=== PATIENT | male | born 1960 | race African-American/Black ===

== ENCOUNTER 2020-08-10 15:24 | Outpatient (REF) | payer MEDICAID, SELFPAY ==
[2020-08-10 16:39] LABS: MANUAL DIFF FLAG NO
[2020-08-10 16:41] LABS: Basophils Percent Auto 0.5 % (0-2); Eosinophils Absolute Auto 0.4 X10*3/uL (0.0-0.4); Eosinophils Percent Auto 5.4 % (0-4); Hematocrit 45.6 % (42-52); Hemoglobin 15.1 g/dl (14.0-18.0); Imm Gran Abs Auto 0.01 X10*3/uL (0.00-0.03); Imm Gran Pct Auto 0.1 % (0.0-0.4); Lymphocytes Absolute Auto 3.7 X10*3/uL (1.2-4.9); Lymphocytes Percent Auto 47.7 % (20-40); Mean Corpuscular HGB Conc 33.1 g/dl (31.0-36.0); Mean Corpuscular Hemoglobin 29.4 pg (27.0-33.0); Mean Corpuscular Volume 88.9 fL (80-98); Mean Platelet Volume 10.9 fL (9.4-12.4); Monocytes Absolute Auto 0.7 X10*3/uL (0.1-1.2); Monocytes Percent Auto 9.1 % (2-11); Neutrophils Absolute Auto 2.9 X10*3/uL (2.0-8.3); Neutrophils Percent Auto 37.2 % (45-73); Platelet Count 284 X10*3/uL (160-400); Red Blood Count 5.13 X10*6/uL (4.60-5.80); Red Cell Distribution Width 12.5 % (11.0-16.0); White Blood Count 7.7 X10*3/uL (4.8-10.8)
[2020-08-10 16:45] LABS: Prothrombin Time 12.2 SEC (10.8-13.0)
[2020-08-10 16:53] LABS: Estimated Average Glucose 103 mg/dL; Hemoglobin A1c % 5.2 %
[2020-08-10 17:08] LABS: Alanine Aminotransferase 46 U/L (0-40); Albumin Level 4.3 g/dL (3.5-5.0); Alkaline Phosphatase 71 U/L (39-117); Anion Gap 15 (12-20); Aspartate Amino Transferase 38 U/L (5-37); Bilirubin Direct 0.3 mg/dL (0.0-0.5); Bilirubin Total 0.4 mg/dL (0.0-1.0); Blood Urea Nitrogen 31 mg/dL (9-16); Calcium 9.5 mg/dL (8.4-10.2); Carbon Dioxide 22 mmol/L (22-29); Chloride 104 mmol/L (96-108); Cholesterol 164 mg/dL; Estimated Glomerular Filt Rate 54; Glucose Random 92 mg/dL (60-115); HDL Cholesterol 64 mg/dL; LDL Cholesterol Calculated 76 mg/dl; Sodium 137 mmol/L (135-145); Total Protein 8.3 g/dL (6.5-8.0); Triglycerides 120 mg/dL
== END 2020-08-10 15:25 | disposition home or self-care (01) ==
LOC: HO.LAB 15:24
PROVIDERS: PCP General Practice; Visit Provider General Practice
DX: B17.10 Acute hepatitis C without hepatic coma (principal); I10 Essential (primary) hypertension
CPT/HCPCS: 36415; 80048; 80061; 80076; 83036; 85025; 85610

== ENCOUNTER 2020-09-08 14:53 | Outpatient (REF) | payer MEDICAID, SELFPAY ==
--- NOTE | 2020-09-08 | US_ITS ---
EXAMINATION: US COMPLETE ABDOMEN WITH LIVER ELASTOGRAPHY CLINICAL INFORMATION: Chronic lateral hepatitis C. COMPARISON: None TECHNIQUE: Real-time imaging of the abdominal viscera. Noninvasive ultrasound liver fibrosis assessment is performed using Liliam ElastPQ point quantification shear wave elastography (pSWE) with a 5 MHz transducer. Multiple elastography samples are obtained. FINDINGS: PANCREAS: The visualized pancreatic head and body are normal in appearance. The remainder of the pancreas is obscured from visualization by the overlying bowel gas. ABDOMINAL AORTA: The proximal, middle, and distal aortic segments are normal in caliber. INFERIOR VENA CAVA: Visualized portions are normal. LIVER: The liver demonstrates normal size, contour and echogenicity. No focal lesion or intrahepatic biliary duct dilatation. The right lobe measures 16.7 cm in length. The left lobe measures 11.6 cm in length. There is hepatopedal flow seen in the portal vein. Incidental finding of periportal echogenicity likely fibrosis. Shear wave elastography provides a median stiffness of 1.37 m/s (reference: normal median stiffness is 0.81 - 1.22 m/s). The IQR/median stiffness to assess sampling precision is 0.3 (reference: optimal IQR/median stiffness is under 0.3). 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 Gallbladder wall thickness is 0.4 cm. No tenderness in the right upper quadrant. COMMON BILE DUCT: Normal in caliber measuring 0.7 cm in diameter. RIGHT KIDNEY: Normal. No hydronephrosis. No renal calculi or focal parenchymal lesions. The kidney measures 11.4 cm in maximum dimension. LEFT KIDNEY: Normal. No hydronephrosis. No renal calculi or focal parenchymal lesions. The kidney measures 11.0 cm in maximum dimension. SPLEEN: Normal. The spleen measures 9.1 cm in maximum dimension. FREE FLUID: None. US/US abdomen comp w elastography IMPRESSION: 1. 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 2. Periportal fibrosis. No focal liver lesion or intrahepatic ductal dilatation. 3. Rest of the abdominal ultrasound is unremarkable. 4. Elastography: [id number] fibrosis.
== END 2020-09-08 14:54 | disposition home or self-care (01) ==
LOC: HO.US 14:53
PROVIDERS: PCP General Practice; Visit Provider Family Medicine
DX: B18.2 Chronic viral hepatitis C (principal); K74.00 Hepatic fibrosis, unspecified
CPT/HCPCS: 76705; 76981

== ENCOUNTER 2020-09-23 12:54 | Emergency (ER) | payer MEDICAID, SELFPAY | END 2020-09-23 18:57 | disposition left against medical advice (07) | PROVIDERS: Emergency Provider Emergency Medicine | DX: R10.13 Epigastric pain (principal) ==

== ENCOUNTER 2020-11-03 14:53 | Outpatient (RCR) | payer MEDICAID, SELFPAY ==
[2020-11-03 15:03] VITALS: BP 112/69; PULSE 85
== END 2020-11-24 09:29 | disposition other institution (70) ==
LOC: HO.PT 14:53
PROVIDERS: PCP General Practice; Visit Provider General Practice
DX: I63.9 Cerebral infarction, unspecified (principal)
CPT/HCPCS: 97110; 97162; 97163

== ENCOUNTER 2020-11-08 14:12 | Outpatient (REF) | payer MEDICAID, SELFPAY ==
[2020-11-08 16:34] LABS: Blood Urea Nitrogen 24 mg/dL (9-16); Estimated Glomerular Filt Rate 56
== END 2020-11-08 14:13 | disposition home or self-care (01) ==
LOC: HO.LAB 14:12
PROVIDERS: PCP General Practice; Visit Provider Surgery
DX: K82.8 Other specified diseases of gallbladder (principal); K80.20 Calculus of gallbladder without cholecystitis without obstruction; B19.20 Unspecified viral hepatitis C without hepatic coma; I10 Essential (primary) hypertension; E07.9 Disorder of thyroid, unspecified; Z79.82 Long term (current) use of aspirin; Z79.899 Other long term (current) drug therapy; Z87.891 Personal history of nicotine dependence
CPT/HCPCS: 36415; 82565; 84520; 99202

== ENCOUNTER 2020-11-17 13:53 | Outpatient (REF) | payer MEDICAID, SELFPAY ==
--- NOTE | ~2020-11-17 | CT_ITS ---
EXAMINATION: CT ABDOMEN AND PELVIS WITH CONTRAST CLINICAL INFORMATION: Other specified diseases of gallbladder. COMPARISON: None TECHNIQUE: Multidetector volumetric images were obtained from the superior aspect of the liver through the pubic symphysis following administration 85 mL of Omnipaque 350 intravenous contrast. Sagittal and coronal reformatted images were obtained on the technologist's workstation. Oral Contrast: No. This CT examination was performed using dose optimization techniques as appropriate, variously including the following: *Automated exposure control. *Adjustment of mA and/or kV according to patient size (this includes techniques or standardized protocols for targeted exams where dose is matched to indication/reason for exam; i.e. extremities or head). *Use of iterative reconstruction technique. DLP: 804 mGy-cm FINDINGS: LUNG BASES: The visualized lung bases are unremarkable. LIVER, GALLBLADDER, AND BILIARY TREE: The liver is normal in size, shape, and attenuation. No focal hepatic lesion or biliary ductal dilatation is present. The gallbladder is unremarkable with no evidence of radiopaque gallstones, gallbladder wall thickening, or obvious pericholecystic inflammatory changes. PANCREAS: Unremarkable. SPLEEN: Unremarkable. ADRENAL GLANDS: Unremarkable. KIDNEYS AND URETERS: The kidneys are normal in size, shape, and attenuation. No hydronephrosis, hydroureter, or calculi seen. No perinephric stranding. There is a 1.7 cm cyst upper pole left kidney. BLADDER: Unremarkable. GASTROINTESTINAL TRACT: There is moderate scattered stool seen throughout the colon without significant distention. Few scattered diverticuli seen. A floppy cecum is visualized in the right mid abdomen. Appendix is normal caliber. The small bowel loops are normal caliber. The stomach is non-distended. ABDOMINAL WALL: No significant hernia is appreciated. LYMPH NODES: Normal. VASCULAR: Unremarkable. PELVIC VISCERA: There is no free air or free fluid. OSSEOUS STRUCTURES: There is no lytic or sclerotic process. There is bilateral anterior fusion of SI joints. Minimal superior endplate spondylosis seen in the lower lumbar spine. CT/CT abdomen pelvis w con IMPRESSION: 1. Moderate constipation. Mild colonic diverticulosis. 2. Small left renal upper pole cyst. No radiopaque urolith or hydronephrosis.
[2020-11-17] MEDS: iohexoL 350 MG/ML 100 ML INFUS..BTL IV (14:48)
== END 2020-11-17 13:54 | disposition home or self-care (01) ==
LOC: HO.CT 13:53
PROVIDERS: PCP General Practice; Visit Provider Surgery
DX: K82.8 Other specified diseases of gallbladder (principal)
CPT/HCPCS: 74177; Q9967

== ENCOUNTER 2020-11-30 15:45 | Outpatient (REF) | payer MEDICAID, SELFPAY ==
[2020-11-30 16:37] LABS: MANUAL DIFF FLAG NO
[2020-11-30 16:42] LABS: Basophils Percent Auto 0.5 % (0-2); Eosinophils Absolute Auto 0.4 X10*3/uL (0.0-0.4); Eosinophils Percent Auto 4.8 % (0-4); Hematocrit 44.6 % (42-52); Imm Gran Abs Auto 0.02 X10*3/uL (0.00-0.03); Imm Gran Pct Auto 0.3 % (0.0-0.4); Lymphocytes Percent Auto 37.9 % (20-40); Mean Corpuscular HGB Conc 33.6 g/dl (31.0-36.0); Mean Corpuscular Hemoglobin 29.4 pg (27.0-33.0); Mean Corpuscular Volume 87.5 fL (80-98); Mean Platelet Volume 10.2 fL (9.4-12.4); Monocytes Absolute Auto 0.9 X10*3/uL (0.1-1.2); Monocytes Percent Auto 11.4 % (2-11); Neutrophils Absolute Auto 3.6 X10*3/uL (2.0-8.3); Neutrophils Percent Auto 45.1 % (45-73); Platelet Count 327 X10*3/uL (160-400); Red Cell Distribution Width 12.1 % (11.0-16.0)
[2020-11-30 17:08] LABS: Alanine Aminotransferase 30 U/L (0-40); Albumin Level 4.5 g/dL (3.5-5.0); Alkaline Phosphatase 84 U/L (39-117); Anion Gap 15 (12-20); Aspartate Amino Transferase 28 U/L (5-37); Bilirubin Total 0.7 mg/dL (0.0-1.0); Blood Urea Nitrogen 20 mg/dL (9-16); Calcium 9.9 mg/dL (8.4-10.2); Carbon Dioxide 23 mmol/L (22-29); Chloride 107 mmol/L (96-108); Estimated Glomerular Filt Rate > 60; Glucose Random 92 mg/dL (60-115); Potassium 4.1 mmol/L (3.3-5.1); Sodium 141 mmol/L (135-145); Total Protein 8.4 g/dL (6.5-8.0)
[2020-12-03 18:22] LABS: HCV Log PCR 1.63 Log IU/mL (NOT DETECTED); HepC Viral Load 43 IU/mL (NOT DETECTED)
== END 2020-11-30 15:46 | disposition home or self-care (01) ==
LOC: HO.LAB 15:45
PROVIDERS: PCP General Practice; Visit Provider Family Medicine
DX: B18.2 Chronic viral hepatitis C (principal)
CPT/HCPCS: 36415; 80053; 85025; 87522

== ENCOUNTER 2020-12-24 07:15 | Day surgery (SDC) | payer MEDICAID, SELFPAY ==
[2020-11-18 13:56] VITALS: BMI 34.7
--- NOTE | 2020-12-13 09:21 | P.CONAN_ITS ---
Documented by User: Radha Floydney 12/17/20 15:10 HPI - Anesthesia Eval Consult details Narrative: 60yo M for Cholecystectomy Laparoscopic, Poss Open PCP cleared h/o hemorrhagic CVA - left side weakness current Hep C treatment resched to 12/24/20 per pt preference PMFSH Active Problems Active Problems: All Active Problems (Updated 11/18/20 @ 14:46 by Rose Vega) Gallstones (Acute) Thyroid disease (Acute) Hepatitis C (Acute) CVA (cerebral vascular accident) (Acute) Hypertension (Acute) Porcelain gallbladder (Acute) Past Medical History Medical History CVA (cerebral vascular accident) Gallstones Hemiparesis Hepatitis C History of atrial fibrillation Hypercholesteremia Hypertension Porcelain gallbladder Shoulder pain, right Thyroid disease Walker as ambulation aid Family History Family History Brother History of bone cancer Mother History of bladder cancer Surgical History Surgical History Hx of arthroscopic knee surgery Hx of colonoscopy Hx of umbilical hernia repair Social History Social History Alcohol intake: former Smoking Status: Former smoker Smoking Quit Date: 2018 Use of substances other than those prescribed or required for medical reasons: No Advance Directives: No Advance Directives Information Provided: No Advance Directives on File: No Meds Allergies Allergy/AdvReac Type Severity Reaction Status Date / Time No Known Allergies Allergy Verified 11/18/20 13:56 Home Medications Medication Instructions Recorded Confirmed Last Taken Type aspirin 81 mg tablet,delayed 81 mg PO DAILY 11/08/20 11/18/20 Unknown History release atorvastatin 10 mg tablet 10 mg PO DAILY 11/08/20 11/18/20 Unknown History hydrochlorothiazide 25 mg tablet 25 mg PO DAILY 11/08/20 11/18/20 Unknown History labetalol 300 mg tablet 300 mg PO BID 11/08/20 11/18/20 Unknown History nifedipine 60 mg tablet,extended 60 mg PO DAILY 11/08/20 11/18/20 Unknown History release sofosbuvir 400 mg-velpatasvir 100 1 tab PO DAILY 11/08/20 12/24/20 12/24/20 06:00 History mg tablet lisinopril 1 tab PO DAILY 11/18/20 11/18/20 Unknown History Exam Exam Date and Time: December 13, 2020920 Height,Weight and Vital Signs: Height 6 ft 2 in Weight 122.47 kg Pertinent Lab Results Pertinent Lab Results: Laboratory Tests 11/30/20 11/30/20 16:06 16:06 WBC 8.0 Hgb 15.0 Hct 44.6 Plt Count 327 Sodium 141 Potassium 4.1 Chloride 107 Carbon Dioxide 23 BUN 20 H Creatinine 1.19 Narrative Narrative: EKG 11/2020 SR @ 79, IA conduction delay, LAD Assessment and Plan Assessment Anesthesia Assessment: Chart Reviewed Documented by User: Aruna Mulligan 12/24/20 09:44 [facility] Past Medical History Medical History CVA (cerebral vascular accident) Gallstones Hemiparesis Hepatitis C History of atrial fibrillation Hypercholesteremia Hypertension Porcelain gallbladder Shoulder pain, right Thyroid disease Walker as ambulation aid Family History Family History Brother History of bone cancer Mother History of bladder cancer Surgical History Surgical History Hx of arthroscopic knee surgery Hx of colonoscopy Hx of umbilical hernia repair Social History Social History Alcohol intake: former Smoking Status: Former smoker Smoking Quit Date: 2018 Use of substances other than those prescribed or required for medical reasons: No Advance Directives: No Advance Directives Information Provided: No Advance Directives on File: No Meds Allergies Allergy/AdvReac Type Severity Reaction Status Date / Time No Known Allergies Allergy Verified 11/18/20 13:56 Home Medications Medication Instructions Recorded Confirmed Last Taken Type aspirin 81 mg tablet,delayed 81 mg PO DAILY 11/08/20 11/18/20 Unknown History release atorvastatin 10 mg tablet 10 mg PO DAILY 11/08/20 11/18/20 Unknown History hydrochlorothiazide 25 mg tablet 25 mg PO DAILY 11/08/20 11/18/20 Unknown History labetalol 300 mg tablet 300 mg PO BID 11/08/20 11/18/20 Unknown History nifedipine 60 mg tablet,extended 60 mg PO DAILY 11/08/20 11/18/20 Unknown History release sofosbuvir 400 mg-velpatasvir 100 1 tab PO DAILY 11/08/20 12/24/20 12/24/20 06:00 History mg tablet lisinopril 1 tab PO DAILY 11/18/20 11/18/20 Unknown History Exam Airway Mallampati Class: III TM Dist: >3cm Neck ROM: Full Loose/Missing/Broken Teeth: No Heart: RRR Lungs: CTA Assessment and Plan Assessment Anesthesia Assessment: Anesthesia Plan Discussed and Chart Reviewed Final Anesthetic Review NPO: Yes ASA Class: III Final Preanesthetic Review: Consent Obtained/Reviewed and Anes Risks/Benef Reviewed Patient Risk: Intermediate Procedure Risk: Intermediate Anesthetic Plan Anesthetic Plan: GA Disposition: Standard PACU
[2020-12-24 07:57] VITALS: BP 117/72; PULSE 70; RESP 16; TEMP 36.7; O2SAT 98
[2020-12-24] MEDS: Lactated Ringers 1,000 ML 100 ML IVCONT (08:12)
--- NOTE | 2020-12-24 09:04 | P.HPSUR_ITS ---
Pre-Procedural Eval Section B Chief Complaint: Porcelain gallbladder, Gallstones Details of Present Illness: Has had gallstones on ultrasound with periodic right upper quadrant pain Relevant Family History (Specify if Yes): No Relevant Social History: None Present Medications: see Short Stay Collaborative assessment Medical History: Significant History (CVA, hypertension, hepatitis-C, thyroid disease) Allergies: Allergies Allergy/AdvReac Type Severity Reaction Status Date / Time No Known Allergies Allergy Verified 11/18/20 13:56 Review of Systems Sugical H&P ROS: Negative: Constitution, Cardiovascular, Respiratory, Psychiatric, Hem-Onc, Allergic/Immunologic, Gastrointestinal, Genitourinary, Musculoskeletal, Integumentary, Endocrine and Eyes/Ears/Nose/Throat and Yes, Specify: Neurological (Left-sided weakness, not new) Exam Surgical H&P Exam: Normal: HEENT, Normal: Heart, Normal: Lungs, Normal: Extremi ties, Normal: Abdomen, Normal: Skin (Left-sided) and Normal: Neurological Plan Diagnosis/Plan: Unchanged I have reviewed the history and physical and performed a pertinent physical examination on my patient. No changes have occurred unless specified.
--- NOTE | 2020-12-24 10:52 | P.OP_ITS ---
Operative Note Operative Note Date of Service: 12/24/20 Narrative: Preop diagnosis: Symptomatic gallstones, question of porcelain gallbladder Postop diagnosis: symptomatic gallstones, question of porcelain gallbladder Procedure: Laparoscopic cholecystectomy Surgeon: Ean Herbert MD using The patient is a 60-year-old male with history of CVA with left-sided weakness with episodes of right upper quadrant pain. Imaging study showing gallstones and question of porcelain gallbladder. Because of his symptoms, explained to him benefit of laparoscopic cholecystectomy. I discussed with him the technique of the procedure. I reviewed with him the risks including but not limited to bleeding, infections, bowel injury, injury to the biliary tree, the liver, as well as benefits and alternatives had he had given consent He was brought to the operating room and placed supine on the table under general anesthesia via endotracheal tube. The abdomen was prepped and draped in the usual sterile fashion. A surgical time-out was done. The patient received Cefotan 2 g IV preoperatively. A short supraumbilical incision was made on the skin using a blade 15 and this was carried down to the full-thickness of the skin and subcutaneous fat down to the fascia. The fascia was incised. The peritoneum was entered and through this incision, a [place] port was introduced. Pneumoperitoneum was introduced to a pressure of 15 mm mercury. From here on the rest of the procedure was done under vision with the laparoscopic. With laparoscopic visualization, I proceeded to insert another 5/12 below the subcostal margin in the epigastric area through a small stab incision. 5 mm ports were introduced through small incisions below the subcostal margin along the anterior axillary line and the midclavicular line. Graspers were placed through these working ports. The patient was placed in head-up and [id number] position. The gallbladder was seen. This was supple and not inflamed. I was able to apply a grasper at the fundus of the gallbladder and this was used to retract t he gallbladder cephalad. Another grasper was applied towards the pouch of the gallbladder and this was used to retract the gallbladder laterally. At this point therefore the gallbladder was being retracted in a cephalad and lateral fashion to put the area of the cystic duct on stretch. There was note of adhesions adjacent to the area towards the abdominal wall in the epigastric area so I had to carefully lyse this using Endo scissors until these were released completely and I was able to have good visualization of the entire gallbladder. I proceeded to gently dissect the the gallbladder using the [place] dissector. With this dissection was able to therefore completely define the cystic duct its confluence of the neck of the gallbladder. I was also able to achieve a critical view of the hepatocystic triangle. The cystic artery was clearly seen and there were no other structures that were in this area. I applied clips on the cystic duct with 2 clips being applied distally the cy stic duct was transected between clips with Endo scissors. I applied clips on the cystic artery as well and this was transected between clips also with Endo scissors. I divided across the areolar tissue of the hilum using the electrocautery spatula. I reached the interface of the gallbladder wall and the liver bed. I made an incision the peritoneum the gallbladder using the electrocautery spat malcolm. I then proceeded to dissect along this well-defined plane of the dissection between the gallbladder wall and the liver bed using a combination of blunt dissection and electrocautery to separate the entire gallbladder from the liver bed. With this dissection method, I proceeded to continue to separate the gallbladder all the way to fundus. The gallbladder was retrieved through an endobag through the umbilical incision. I reinsufflated. There was a little bit of bile leak from a tear in the gallbladder wall from the retractor her air so we had to copiously irrigate up to 2 L of fluid. I suctioned out the irrigant fluid and this was noted to be clear. I observed the subhepatic space. There were no signs of any bleeding or any bile leak. I observed all 4 quadrants of the peritoneum and there was no evidence any bowel injury or any other pathology I confirmed for hemostasis. Once hemostasis was ensured, I proceeded to desufflate through the port sites I then removed the ports with laparoscopic visualization. The umbilical port was removed last. The fascia of the umbilical incision is closed with a [id number] Dexon 0. Skin closure was achieved achieved on all incisions using Dexon 4-0 subcuticular sutures. Steri-Strips and dressings were applied. The procedure was then completed. No immediate complications. Initial and final counts of sponges and instruments were correct. Estimated blood loss about 30 cc. The patient was extubated without difficulty and transferred to the recovery room with stable vital signs.
[2020-12-24 10:55] VITALS: BP 110/72; PULSE 72; RESP 14; TEMP 37.3; O2SAT 100
[2020-12-24 11:00] VITALS: BP 117/80; PULSE 72; RESP 16; O2SAT 96
--- NOTE | 2020-12-24 11:01 | PM.OP ---
Brief Operative Note Date of Service: 12/24/20 Pre-op diagnosis: Symptomatic gallstones, question of porcelain gallbladder Post-op diagnosis: same Procedure: Laparoscopic cholecystectomy Surgeon: Ean Herbert MD Anesthesia: GETA Estimated blood loss (mL): 25 Pathology: other (Gallbladder) Condition: stable Disposition: PACU
[2020-12-24 11:05] VITALS: BP 117/82; PULSE 72; RESP 16; O2SAT 94
[2020-12-24 11:10] VITALS: BP 118/79; PULSE 71; RESP 16; O2SAT 96
[2020-12-24 11:25] VITALS: BP 111/84; PULSE 65; RESP 18; TEMP 37.1; O2SAT 95
== END 2020-12-24 12:55 | disposition home or self-care (01) ==
PROVIDERS: PCP General Practice; Visit Provider Surgery
PROC: 0FT44ZZ Resection of Gallbladder, Percutaneous Endoscopic Approach (ICD-10-PCS; CPT 47562; principal; 2020-12-24 09:30)
DX: K80.20 Calculus of gallbladder without cholecystitis without obstruction (principal); I10 Essential (primary) hypertension; B19.20 Unspecified viral hepatitis C without hepatic coma; I69.354 Hemiplegia and hemiparesis following cerebral infarction affecting left non-dominant side; Z79.82 Long term (current) use of aspirin; Z79.899 Other long term (current) drug therapy
CPT/HCPCS: 47562; 88304; J1100; J1170; J1885; J2250; J2405; J3010

== ENCOUNTER → 2021-01-24 11:35 | Outpatient (BNVA) | payer MEDICAID, SELFPAY | PROVIDERS: PCP General Practice; Visit Provider Surgery | DX: Z48.815 Encounter for surgical aftercare following surgery on the digestive system (principal); Z93.3 Colostomy status; Z87.19 Personal history of other diseases of the digestive system | CPT/HCPCS: 99212 ==

== ENCOUNTER 2021-05-12 15:43 | Outpatient (REF) | payer MEDICAID, SELFPAY ==
[2021-05-12 17:45] LABS: Alanine Aminotransferase 24 U/L (0-40); Albumin Level 4.4 g/dL (3.5-5.0); Alkaline Phosphatase 66 U/L (39-117); Aspartate Amino Transferase 25 U/L (5-37); Bilirubin Direct 0.3 mg/dL (0.0-0.5); Bilirubin Total 0.5 mg/dL (0.0-1.0)
[2021-05-13 14:21] LABS: HCV Log PCR <1.18 NOT DETECTED Log IU/mL (NOT DETECTED); HepC Viral Load <15 NOT DETECTED IU/mL (NOT DETECTED)
== END 2021-05-12 15:44 | disposition home or self-care (01) ==
LOC: HO.LAB 15:43
PROVIDERS: PCP General Practice; Visit Provider Family Medicine
DX: B18.2 Chronic viral hepatitis C (principal)
CPT/HCPCS: 36415; 80076; 87522

== ENCOUNTER 2023-06-18 16:34 | Outpatient (REF) | payer OTHER, SELFPAY ==
[2023-06-18 18:07] LABS: Anion Gap 16 (12-20); Blood Urea Nitrogen 22 mg/dL (9-16); Calcium 10.3 mg/dL (8.4-10.2); Carbon Dioxide 22 mmol/L (22-29); Chloride 106 mmol/L (96-108); Estimated Glomerular Filt Rate 56; Glucose Random 90 mg/dL (60-115); Potassium 3.8 mmol/L (3.3-5.1); Sodium 140 mmol/L (135-145)
[2023-06-18 18:10] LABS: B Type Natriuretic Peptide 12 pg/mL (<100)
== END 2023-06-18 16:35 | disposition home or self-care (01) ==
LOC: HO.HHCL 16:34
PROVIDERS: Visit Provider General Practice
DX: R22.42 Localized swelling, mass and lump, left lower limb (principal)
CPT/HCPCS: 36415; 80048; 83880

== ENCOUNTER 2024-07-25 15:14 | Outpatient (REF) | payer OTHER, MEDICAID, SELFPAY ==
[2024-07-25 16:40] LABS: Estimated Average Glucose 111 mg/dL; Hemoglobin A1C 137.6045 umol/L; Hemoglobin A1c % 5.5 % (<6.0); Total Hemoglobin (HGBA1C) 3725.1099 umol/L
[2024-07-25 17:02] LABS: Alanine Aminotransferase 23 U/L (0-40); Albumin Level 4.2 g/dL (3.5-5.0); Alkaline Phosphatase 61 U/L (39-117); Anion Gap 13 (12-20); Aspartate Amino Transferase 30 U/L (5-37); Bilirubin Total 0.7 mg/dL (0.0-1.0); Blood Urea Nitrogen 16 mg/dL (9-16); Calcium 9.6 mg/dL (8.4-10.2); Carbon Dioxide 25 mmol/L (22-29); Chloride 107 mmol/L (96-108); Cholesterol 138 mg/dL (<200); Estimated Glomerular Filt Rate 60; Glucose Random 85 mg/dL (60-115); HDL Cholesterol 52 mg/dL (>40); LDL Cholesterol Calculated 77 mg/dL (<100); Potassium 3.7 mmol/L (3.3-5.1); Sodium 141 mmol/L (135-145); Total Protein 7.6 g/dL (6.5-8.0); Triglycerides 45 mg/dL (<150)
[2024-07-26 04:26] LABS: ~HepC Num1 15.51 S/CO (0.00-0.79); ~Hepatitis C Antibody Reactive (Nonreactive)
[2024-07-29 15:33] LABS: HCV Log PCR <1.18 NOT DETECTED Log IU/mL (NOT DETECTED); HepC Viral Load <15 NOT DETECTED IU/mL (NOT DETECTED)
== END 2024-07-25 15:15 | disposition home or self-care (01) ==
LOC: HO.HHCL 15:14
PROVIDERS: Visit Provider General Practice
DX: I10 Essential (primary) hypertension (principal); Z86.19 Personal history of other infectious and parasitic diseases; Z13.1 Encounter for screening for diabetes mellitus
CPT/HCPCS: 36415; 80053; 80061; 83036; 86803; 87522

== ENCOUNTER 2024-10-16 13:44 | Outpatient (RCR) | payer MEDICARE, MEDICAID, SELFPAY | END 2025-09-04 15:08 | disposition home or self-care (01) | LOC: HO.PT 13:44 | PROVIDERS: PCP General Practice; Visit Provider General Practice | DX: I69.359 Hemiplegia and hemiparesis following cerebral infarction affecting unspecified side (principal) | CPT/HCPCS: 97161; 97162 ==